=== PATIENT | female | born 1950 | race Caucasian/White ===

== ENCOUNTER 2017-05-04 12:13 | Emergency (ER) | payer MEDICARE ==
[2017-05-04] MEDS ORDERED: ISOVUE-370 76%-LOCM 1 ML ONE (14:12)
[2017-05-04 14:14] LABS: #Basophils 0.1 thou/uL (0.0-0.2); #Eosinphils 0.1 thou/uL (0.0-0.7); #Lymphocytes 2.1 thou/uL (1.20-3.40); #Monocytes 0.6 thou/uL (0.11-0.59); #Neutrophils 4.4 thou/uL (1.40-6.50); %Basophils 0.7 % (0.0-1.0); %Eosinophils 1.3 % (0.0-10.0); %Monocytes 8.8 % (0.0-10.0); Hematocrit 43.3 % (36.0-47.0); Mean Platelet Volume 7.4 fL (7.4-10.4); Red Blood Cell (RBC) Count 4.83 mill/uL (4.20-5.40); White Blood Cell (WBC) Count 7.3 thou/uL (4.8-10.8)
[2017-05-04 14:20] LABS: PTT 28.5 SEC (22.9-36.1); Prothrombin Time 12.8 SEC (12.0-14.7)
[2017-05-04 14:38] LABS: ALT (SGPT) 14 U/L (8-55); AST (SGOT) 15 U/L (5-34); Alkaline Phosphatase 116 U/L (40-150); Anion Gap 14 mmol/L (10-20); BUN (Urea Nitrogen) 12 mg/dL (9.8-20.1); Bilirubin, Total 0.5 mg/dL (0.2-1.2); Calc. Creatinine Clearance 0 mL/min (70-130); Calcium 9.4 mg/dL (7.8-10.44); Carbon Dioxide 25 mmol/L (23-31); Chloride 103 mmol/L (98-107); Estimated GFR-MDRD 66; Globulin 3.5 g/dL (2.4-3.5); Protein, Total 7.6 g/dL (6.0-8.3)
--- NOTE | 2017-05-04 16:21 | CT ---
CTA OF THE NECK WITH CONTRAST: COMPARISON: None. HISTORY: Severe neck pain and blurry vision for 2 days. The patient saw her chiropractor for an adjustment 3 weeks ago and reports pain with rotation of the neck. TECHNIQUE: Multiple contiguous axial images were obtained in a CTA of the neck with contrast. Sagittal and cor onal reformats were performed. FINDINGS: Moderate degenerative changes are seen in the cervical spine. There is no evidence of fracture or d islocation. No prevertebral soft tissue swelling is seen. No mucosal abnormality is seen in the nasopharynx, oropharynx, hypopharynx, or subglottic lesion. T he salivary glands and thyroid are unremarkable. The lung apices are unremarkable. There is a mild amount of atherosclerotic plaque in the proximal aspect of both internal carotid art eries. Estimated stenosis of approximately 10-15% per NASCET criteria is seen bilaterally. No sign ificant atherosclerotic disease is seen in the distal internal carotid arteries. Both vertebral arteries form a normal-appearing basilar artery. The left vertebral artery is domina nt. IMPRESSION: Mild atherosclerotic disease in the bilateral internal carotid arteries without significant stenosis . POS: [facility]
== END 2017-05-04 16:24 | disposition home or self-care (01) ==
LOC: ERS 12:13
DX: M54.12 Radiculopathy, cervical region (principal); I65.29 Occlusion and stenosis of unspecified carotid artery; E11.9 Type 2 diabetes mellitus without complications; I10 Essential (primary) hypertension; Z79.899 Other long term (current) drug therapy
CPT/HCPCS: 36415; 70498; 80053; 85025; 85610; 85730

== ENCOUNTER 2017-10-10 13:00 | Emergency (ER) | payer MEDICARE ==
--- NOTE | 2017-10-10 15:43 | ULT ---
BILATERAL LOWER EXTREMITY VENOUS DUPLEX EXAM: Date: 10/10/17 Ultrasound Doppler study performed of the deep veins of both lower extremities. Color Doppler, spectr al analysis, and compression studies performed. HISTORY: Bilateral lower extremity pain and edema. FINDINGS: Deep veins of both lower extremities show normal compression and blood flow. No evidence of deep veno us thrombosis identified. IMPRESSION: Negative bilateral lower extremity venous duplex study. POS: [facility]
[2017-10-10] MEDS ORDERED: traMADol HCl 50 MG TAB ONE (16:11)
== END 2017-10-10 16:15 | disposition home or self-care (01) ==
LOC: ERS 13:00
DX: M79.662 Pain in left lower leg (principal); E11.9 Type 2 diabetes mellitus without complications; I10 Essential (primary) hypertension; J45.909 Unspecified asthma, uncomplicated; K21.9 Gastro-esophageal reflux disease without esophagitis; Z79.899 Other long term (current) drug therapy
CPT/HCPCS: 93970

== ENCOUNTER 2018-03-02 09:52 | Emergency (ER) | payer MEDICARE ==
[2018-03-02 10:26] LABS: Bilirubin Negative (Negative); Blood, Urine Small (Negative); Clarity CLEAR (Clear); Glucose, Urine (Dipstick) Negative (Negative); Leukocyte Negative (Negative); Nitrite Negative (Negative); Protein, Urine (Dipstick) Negative (Neg-Trace); Specific Gravity, Urine 1.005 (1.002-1.036)
[2018-03-02 10:29] LABS: Bacteria/HPF 1+ HPF (None Seen); Hyaline Casts/LPF 0-3 HYALINE CAST LPF (0-3 Hyaline); Pathc Cast-AUWi Flag 0.14 (0-2.49); RBC/HPF 0-3 HPF (0-3); Squamous Epithelial 0-3 HPF (0-3); WBC/HPF 0-3 HPF (0-3)
[2018-03-02 10:30] LABS: #Lymphocytes 1.9 thou/uL (1.20-3.40); #Monocytes 0.5 thou/uL (0.11-0.59); #Neutrophils 4.2 thou/uL (1.40-6.50); %Basophils 0.3 % (0.0-1.0); %Eosinophils 0.5 % (0.0-10.0); %Lymphocytes 28.2 % (21.0-51.0); %Monocytes 7.9 % (0.0-10.0); %Neutrophils 63.1 % (42.0-75.0); Hemoglobin 13.8 g/dL (12.0-16.0); Mean Corpuscular HGB CONC 32.6 g/dL (32.0-36.0); Mean Corpuscular Hemoglobin 29.3 pg (27.0-31.0); Mean Corpuscular Volume 89.9 fL (78.0-98.0); Mean Platelet Volume 7.4 fL (7.4-10.4); Platelet Count 170 thou/uL (130-400); RBC Distribution Width 12.4 % (11.5-14.5); White Blood Cell (WBC) Count 6.7 thou/uL (4.8-10.8)
[2018-03-02 10:34] LABS: INR-International Normal Ratio 1.1; Prothrombin Time 14.4 SEC (12.0-14.7)
[2018-03-02 10:51] LABS: ALT (SGPT) 16 U/L (8-55); AST (SGOT) 18 U/L (5-34); Albumin 4.2 g/dL (3.4-4.8); Alkaline Phosphatase 113 U/L (40-150); Anion Gap 12 mmol/L (10-20); BUN (Urea Nitrogen) 12 mg/dL (9.8-20.1); Bilirubin, Total 0.6 mg/dL (0.2-1.2); Calc. Creatinine Clearance 0 mL/min (70-130); Calcium 9.3 mg/dL (7.8-10.44); Carbon Dioxide 27 mmol/L (23-31); Chloride 103 mmol/L (98-107); Estimated GFR-MDRD 70; Globulin 3.3 g/dL (2.4-3.5); Glucose 152 mg/dL (80-115); Magnesium 2.2 mg/dL (1.6-2.6); Potassium 4.2 mmol/L (3.5-5.1); Protein, Total 7.5 g/dL (6.0-8.3); Sodium 138 mmol/L (136-145)
[2018-03-02 11:02] LABS: Troponin I Less than 0.010 ng/mL (< 0.028)
--- NOTE | 2018-03-02 11:05 | RAD ---
CHEST TWO VIEWS: History: Chest pain, palpitations. Comparison: 2004 FINDINGS: Heart size upper limits of normal. No focal airspace consolidation, pneumothorax, or effusion. Mild t ortuosity of the aorta. Right upper quadrant surgical clips. IMPRESSION: Mild cardiomegaly and tortuous aorta. POS: [facility]
== END 2018-03-02 12:28 | disposition home or self-care (01) ==
LOC: ERS 09:52
DX: I48.91 Unspecified atrial fibrillation (principal); E11.9 Type 2 diabetes mellitus without complications; I10 Essential (primary) hypertension; J45.909 Unspecified asthma, uncomplicated; K21.9 Gastro-esophageal reflux disease without esophagitis
CPT/HCPCS: 71046; 80053; 81003; 81015; 83735; 83880; 84484; 85025; 85610; 85730; 93005

== ENCOUNTER 2018-04-28 09:25 | Emergency (ER) | payer MEDICARE ==
--- NOTE | 2018-04-28 10:11 | RAD ---
RIGHT KNEE FOUR VIEWS: HISTORY: Knee pain. FINDINGS: Moderate degenerative changes are present. Narrowing of the medial joint space. Spurring from tibia l condyles, tibial spines, femoral condyles, and patella. Possible small joint effusion. No fractur e or acute lesion. IMPRESSION: Moderate degenerative changes, as described. POS: [facility]
[2018-04-28] MEDS ORDERED: predniSONE 20 MG TAB ONE (10:41)
== END 2018-04-28 10:51 | disposition home or self-care (01) ==
LOC: ERS 09:25
DX: M25.461 Effusion, right knee (principal); I48.91 Unspecified atrial fibrillation; E11.9 Type 2 diabetes mellitus without complications; I10 Essential (primary) hypertension; J45.909 Unspecified asthma, uncomplicated; K21.9 Gastro-esophageal reflux disease without esophagitis; Z79.899 Other long term (current) drug therapy
CPT/HCPCS: J7506

== ENCOUNTER 2018-09-05 09:45 | Outpatient (CLI) | payer MEDICARE | END 2018-09-05 09:46 | disposition home or self-care (01) | LOC: BICMAMMO 09:45 | PROVIDERS: ATTEND Obstetrics & Gynecology | DX: Z12.31 Encounter for screening mammogram for malignant neoplasm of breast (principal); Z80.3 Family history of malignant neoplasm of breast | CPT/HCPCS: 77063; 77067 ==

== ENCOUNTER 2018-10-04 08:10 | Emergency (ER) | payer MEDICARE ==
[2018-10-04 09:33] LABS: #Eosinphils 0.1 thou/uL (0.0-0.7); #Lymphocytes 1.5 thou/uL (1.20-3.40); #Monocytes 0.7 thou/uL (0.11-0.59); #Neutrophils 6.9 thou/uL (1.40-6.50); %Basophils 0.5 % (0.0-1.0); %Eosinophils 0.8 % (0.0-10.0); %Monocytes 7.6 % (0.0-10.0); %Neutrophils 75.2 % (42.0-75.0); Mean Corpuscular HGB CONC 31.6 g/dL (32.0-36.0); Mean Corpuscular Hemoglobin 27.5 pg (27.0-31.0); Mean Platelet Volume 8.7 fL (7.4-10.4); Platelet Count 192 thou/uL (130-400); RBC Distribution Width 12.2 % (11.5-14.5); Red Blood Cell (RBC) Count 4.37 mill/uL (4.20-5.40); White Blood Cell (WBC) Count 9.1 thou/uL (4.8-10.8)
[2018-10-04 09:56] LABS: ALT (SGPT) 16 U/L (8-55); AST (SGOT) 19 U/L (5-34); Albumin 4.1 g/dL (3.4-4.8); Alkaline Phosphatase 137 U/L (40-150); Anion Gap 12 mmol/L (10-20); BUN (Urea Nitrogen) 12 mg/dL (9.8-20.1); Bilirubin, Total 0.4 mg/dL (0.2-1.2); CK (CPK) 43 U/L (29-168); Calc. Creatinine Clearance 0 mL/min (70-130); Calcium 9.4 mg/dL (7.8-10.44); Carbon Dioxide 25 mmol/L (23-31); Chloride 104 mmol/L (98-107); Estimated GFR-MDRD 71; Globulin 3.3 g/dL (2.4-3.5); Glucose 149 mg/dL (80-115); Potassium 4.2 mmol/L (3.5-5.1); Protein, Total 7.4 g/dL (6.0-8.3); Sodium 137 mmol/L (136-145)
--- NOTE | 2018-10-04 10:09 | RAD ---
CHEST 1 VIEW: HISTORY: dyspnea. COMPARISON: Radiograph 01/30/2015. FINDINGS: Lungs are clear. No pneumothorax or effusion. Cardiac silhouette and mediastinal contours are simil ar. No acute osseous abnormality. Mild ectasia of the descending thoracic aorta. IMPRESSION: No acute intrathoracic abnormality. POS: [facility]
== END 2018-10-04 11:56 | disposition home or self-care (01) ==
LOC: ERS 08:10
DX: R06.02 Shortness of breath (principal); I48.91 Unspecified atrial fibrillation; E11.9 Type 2 diabetes mellitus without complications; I10 Essential (primary) hypertension; J45.909 Unspecified asthma, uncomplicated; K21.9 Gastro-esophageal reflux disease without esophagitis; Z79.899 Other long term (current) drug therapy
CPT/HCPCS: 36415; 71045; 80053; 82550; 83605; 83880; 84484; 85025; 85379; 87804; 93005; 94640; 94760; J7620

== ENCOUNTER 2019-05-07 02:58 | Emergency (ER) | payer MEDICARE ==
[2019-05-07] MEDS ORDERED: Ondansetron ODT 4 MG TAB ONE (03:26)
[2019-05-07] MEDS ORDERED: Acetaminophen 500 MG TAB ONE (03:26)
== END 2019-05-07 03:42 | disposition home or self-care (01) ==
LOC: ERS 02:58
DX: L03.811 Cellulitis of head [any part, except face] (principal); E11.9 Type 2 diabetes mellitus without complications; I10 Essential (primary) hypertension; J45.909 Unspecified asthma, uncomplicated; K21.9 Gastro-esophageal reflux disease without esophagitis; I48.91 Unspecified atrial fibrillation
CPT/HCPCS: 99283; Q0162

== ENCOUNTER 2019-07-15 08:49 | Emergency (ER) | payer MEDICARE, SELFPAY ==
--- NOTE | 2019-07-15 09:30 | RAD ---
XR Chest 1 View Portable HISTORY: Elevated heart rate COMPARISON: 10/04/2018 study. FINDINGS: Heart size appears enlarged. There are atherosclerotic changes of the aorta. The lungs are clear of infiltrates. No signs of failure. IMPRESSION: Mild cardiomegaly.
[2019-07-15 09:36] LABS: #Eosinphils 0.3 thou/uL (0.0-0.7); #Lymphocytes 2.1 thou/uL (1.20-3.40); #Monocytes 0.8 thou/uL (0.11-0.59); #Neutrophils 4.2 thou/uL (1.40-6.50); %Basophils 0.3 % (0.0-1.0); %Eosinophils 4.3 % (0.0-10.0); %Lymphocytes 28.4 % (21.0-51.0); %Monocytes 10.2 % (0.0-10.0); %Neutrophils 56.8 % (42.0-75.0); Hemoglobin 12.1 g/dL (12.0-16.0); Mean Corpuscular HGB CONC 31.8 g/dL (32.0-36.0); Mean Corpuscular Hemoglobin 25.6 pg (27.0-31.0); Mean Corpuscular Volume 80.4 fL (78.0-98.0); Mean Platelet Volume 8.2 fL (7.4-10.4); Platelet Count 168 thou/uL (130-400); RBC Distribution Width 15.1 % (11.5-14.5); Red Blood Cell (RBC) Count 4.71 mill/uL (4.20-5.40); White Blood Cell (WBC) Count 7.4 thou/uL (4.8-10.8)
[2019-07-15 09:44] LABS: ALT (SGPT) 14 U/L (8-55); AST (SGOT) 14 U/L (5-34); Alkaline Phosphatase 125 U/L (40-110); Anion Gap 13 mmol/L (10-20); BUN (Urea Nitrogen) 10 mg/dL (9.8-20.1); Bilirubin, Total 0.6 mg/dL (0.2-1.2); Calc. Creatinine Clearance 0 mL/min (70-130); Calcium 9.3 mg/dL (7.8-10.44); Carbon Dioxide 25 mmol/L (23-31); Chloride 102 mmol/L (98-107); Estimated GFR-MDRD 72; Globulin 3.1 g/dL (2.4-3.5); Glucose 159 mg/dL (80-115); Lipase 21 U/L (8-78); Magnesium 1.8 mg/dL (1.6-2.6); Protein, Total 7.1 g/dL (6.0-8.3); Sodium 136 mmol/L (136-145)
[2019-07-15] MEDS ORDERED: Metoprolol Tartrate 5 MG/5 ML VIAL ONE (10:11)
[2019-07-15] MEDS ORDERED: Magnesium 2 GM/50 ML BAG (IN WATER) ONE (10:12)
[2019-07-15 10:40] LABS: Bacteria/HPF None Seen HPF (None Seen); Bilirubin Negative (Negative); Blood, Urine 1+ (Negative); Clarity Clear (Clear); Glucose, Urine (Dipstick) Normal (Negative); Leukocyte 75 Leu/uL (Negative); Nitrite Negative (Negative); Protein, Urine (Dipstick) Negative (Neg-Trace); Squamous Epithelial 0-3 HPF (0-3); Urobilinogen Normal mg/dL (Less than 2)
== END 2019-07-15 11:09 | disposition home or self-care (01) ==
LOC: ERS 08:49
DX: I48.91 Unspecified atrial fibrillation (principal); N39.0 Urinary tract infection, site not specified; R05 Cough; I49.9 Cardiac arrhythmia, unspecified; E11.9 Type 2 diabetes mellitus without complications; I10 Essential (primary) hypertension; K21.9 Gastro-esophageal reflux disease without esophagitis
CPT/HCPCS: 36415; 71045; 80053; 81003; 81015; 83690; 83735; 83880; 84443; 84484; 85025; 87077; 87086; 87186; 93005; 96374; 96375; J3475

== ENCOUNTER 2019-08-22 06:33 | Observation (INO) | payer MEDICARE ==
[2019-08-21 09:43] VITALS: BMI 36.2
[2019-08-22] MEDS ORDERED: Isoproterenol 0.2 MG/1 ML AMP ONE ×2 (06:51→10:37)
[2019-08-22] MEDS ORDERED: Heparin 25,000 units/D5W 500 ML ONE (06:51)
[2019-08-22] MEDS ORDERED: Heparin 10,000 UNITS/1 ML VIAL ONE ×2 (06:51→10:36)
[2019-08-22] MEDS ORDERED: Heparin (Artline) 1,500 ML ONE (06:51)
[2019-08-22 07:53] LABS: #Eosinphils 0.1 thou/uL (0.0-0.7); #Lymphocytes 1.7 thou/uL (1.20-3.40); #Monocytes 0.5 thou/uL (0.11-0.59); #Neutrophils 4.6 thou/uL (1.40-6.50); %Basophils 0.4 % (0.0-1.0); %Eosinophils 1.2 % (0.0-10.0); %Lymphocytes 24.8 % (21.0-51.0); %Monocytes 7.5 % (0.0-10.0); Hemoglobin 11.5 g/dL (12.0-16.0); Mean Corpuscular HGB CONC 31.2 g/dL (32.0-36.0); Mean Corpuscular Hemoglobin 25.1 pg (27.0-31.0); Mean Corpuscular Volume 80.4 fL (78.0-98.0); Mean Platelet Volume 8.1 fL (7.4-10.4); Platelet Count 214 thou/uL (130-400); RBC Distribution Width 14.3 % (11.5-14.5); Red Blood Cell (RBC) Count 4.61 mill/uL (4.20-5.40)
[2019-08-22 07:59] LABS: INR-International Normal Ratio 1.1; PTT 34.1 SEC (22.9-36.1); Prothrombin Time 13.9 SEC (12.0-14.7)
[2019-08-22 08:11] LABS: Anion Gap 11 mmol/L (10-20); BUN (Urea Nitrogen) 14 mg/dL (9.8-20.1); Calc. Creatinine Clearance 100 mL/min (70-130); Calcium 8.7 mg/dL (7.8-10.44); Carbon Dioxide 24 mmol/L (23-31); Chloride 106 mmol/L (98-107); Estimated GFR-MDRD 73; Glucose 157 mg/dL (83-110); Potassium 4.1 mmol/L (3.5-5.1); Sodium 137 mmol/L (136-145)
[2019-08-22] MEDS ORDERED: Fentanyl 100 MCG/2 ML VIAL ONE ×2 (08:55→11:11)
[2019-08-22] MEDS ORDERED: SUGAMMADEX SODIUM 500 MG/5 ML VIAL ONE (08:57)
[2019-08-22] MEDS ORDERED: Rocuronium Bromide 50 MG/5 ML VIAL ONE (08:57)
[2019-08-22] MEDS ORDERED: Ondansetron PF 4 MG/2 ML Vial ONE (10:23)
[2019-08-22] MEDS ORDERED: PROPOFOL 200 MG/20 ML VIAL ONE (10:23)
[2019-08-22] MEDS ORDERED: Rocuronium Bromide 10 MG/ML (10ML VIAL) ONE (10:23)
[2019-08-22] MEDS ORDERED: Dexamethasone 20 MG/5 ML VIAL ONE (10:23)
[2019-08-22] MEDS ORDERED: ePHEDrine/0.9% NaCl/PF SYRINGE 50 mg/10 ml ONE (10:23)
[2019-08-22] MEDS ORDERED: Glycopyrrolate 0.2 MG/ML 5 ML SYRINGE ONE (10:23)
[2019-08-22] MEDS ORDERED: Midazolam HCl 2 mg/2 ml Vial ONE (11:11)
[2019-08-22] MEDS ORDERED: Protamine Sulfate 50 MG/5 ML VIAL ONE (11:48)
--- NOTE | 2019-08-22 14:07 | OP ---
DATE OF PROCEDURE: 08/22/2019 PROCEDURE PERFORMED: Electrophysiology study and radiofrequency ablation. ADDITIONAL REFERRING PHYSICIAN: Delaney Flores MD. REASON FOR PROCEDURE: Ms. Zapien is a 69-year-old female with history of atrial fibrillation, persisting despite of Multaq therapy and flecainide therapy prior to that. She is here for a pulmonary venous isolation procedure. She has been adequately anticoagulated with Eliquis. DESCRIPTION OF PROCEDURE: The patient received general anesthesia by anesthesia specialist. Left and right femoral veins were prepped and draped, anesthetized using subcutaneous lidocaine. Under ultrasound guidance, both femoral veins were cannulated x2. On the left side, an 11-Mongolian sheath was used to advance the intracardiac echocardiogram probe, which was in turn used for one time during the transseptal procedure in the pericardial space and catheter manipulation throughout the case. Also from the left femoral vein, a Preface sheath was advanced, through which a duo-Deca catheter was positioned into the right atrium and CS position. From the right femoral venous area, initially two 8-Mongolian short sheaths were introduced, through which a ThermoCool SFST catheter was advanced to the right atrium and 3D map of the right atrium, His bundle, and CS positions were obtained. Following that, the short sheath was exchanged to SL1 transseptal sheaths. IV heparin was administered and adjusted throughout the case to keep ACT over 350, which was periodically checked. With the help of a Etaoshi powered needle under fluoroscopic and intracardiac echo guidance, the transseptal puncture was performed x2 and the SL1 sheath was advanced into left atrium. The ThermoCool SFST catheter was advanced to the left atrium as well as the 20-pole Lasso catheter as well. 3D map of the left atrium was obtained. Following that, pulmonary venous isolation procedure was performed, isolating all 4 pulmonary veins, roof line, and inferior line was also performed to the isolated posterior wall. Throughout the case, the esophageal temperature was used to avoid excessive heating of the esophagus. Despite of the ablation as above, the patient remained atrial fibrillation. Further lesions were delivered at the interatrial septum and base of the left atrium at the sites of fractionated potentials. At this point, cardioversion was performed with a 300-joule, converted the patient back to sinus rhythm. Isuprel was administered and all 4 pulmonary vein connections were checked and any reconnection was re- ablated. The posterior wall in all 4 veins was remained isolated at the end of the case. Burst atrial pacing was performed. Basic EP study was also performed including ventricular pacing from the LV. The antegrade Wenckebach cycle length was 350 milliseconds, retrograde Wenckebach cycle length was 330 milliseconds, HV was 41 milliseconds, atrial ERP was 400/180 milliseconds. Burst atrial pacing did not reinduce any atrial arrhythmias. No significant PACs were seen. Throughout the case in the left atrium, [id number]-ky-[id number] scarring was seen. A total of 16 minutes of RF delivered at 40 gonzalez, total of 29 lesions delivered. Normal sinus and AV lucio function pre and post procedure. No inducible arrhythmias in the end of the case. Following that, the catheter was withdrawn from the left side. Heparin was stopped and then reversed with protamine. A long sheath was exchanged for short sheath and the Vascade closure was performed at each vascular access site. Manual pressure was also applied to obtain hemostasis. Prior to removal of the ICE catheter, the pericardial space was rechecked. The baseline small pericardial effusion was mildly increased, but no hemodynamic significance and the patient remained hemodynamically stable throughout the case. The cardiac silhouette did not change significantly either on the fluoroscopy. CONCLUSION: 1. Atrial fibrillation at baseline. 2. Successful 4-vein pulmonary venous isolation performed. 3. Posterior wall was isolated with roof and inferior lines. 4. Additional lesions placed in the base of left atrium over the coronary sinus roof and interatrial septum. 5. Plan continue OAC, Stop Multaq, monitor for recurrence. Job ID: [id number] MTDD
[2019-08-22] MEDS ORDERED: Acetaminophen/Codeine 30-300mg Tablet PO PRN ×4 (14:41→14:45)
[2019-08-22] MEDS ORDERED: Nitroglycerin 0.4 MG TAB 1 EACH SL PRN (14:44)
[2019-08-22] MEDS ORDERED: Ketorolac Tromethamine 30 MG/ML VIAL IVP PRN (15:01)
[2019-08-22] MEDS: Sucralfate 1 GM TAB PO SCH ×2 (16:41→20:57)
[2019-08-22] MEDS: Apixaban 5 MG TAB PO SCH (20:57)
[2019-08-22] MEDS: Carvedilol 6.25 MG TAB PO SCH (20:58)
[2019-08-22] MEDS ORDERED: Rosuvastatin 10 MG TAB PO SCH (21:00)
[2019-08-23 04:50] VITALS: TEMP 97.9
[2019-08-23] MEDS: Carvedilol 6.25 MG TAB PO SCH (08:28)
[2019-08-23] MEDS: Apixaban 5 MG TAB PO SCH (08:28)
[2019-08-23] MEDS: Sucralfate 1 GM TAB PO SCH (08:28)
[2019-08-23 08:37] VITALS: BP 134/63
--- NOTE | 2019-08-24 01:28 | DIS ---
DATE OF ADMISSION: 08/22/2019 DATE OF DISCHARGE: 08/23/2019 DIAGNOSIS: Atrial fibrillation. PROCEDURES PERFORMED: Include electrophysiology study and radiofrequency ablation with mapping. Successful four vein pulmonary venous isolation performed including posterior wall isolation with roof and inferior lines. Additional lesions placed at the base of the left atrium over the coronary sinus roof and intra-atrial space. Total of 16 minutes RF energy delivered. Normal sinus and AV node function pre and post procedure. Complications, none. SUBJECTIVE: Ms. Zapien is a 69-year-old woman with a history of atrial fibrillation, persisting despite Multaq therapy and flecainide prior to her procedure. She was taken for pulmonary venous isolation procedure on the , which was performed as detailed above successfully restoring sinus rhythm. She has maintained sinus rhythm overnight, is no longer on antiarrhythmic therapy. Heart rates have been stable with minimal atrial ectopy with continued low-dose beta-marnie support on Coreg. The Eliquis was restarted post ablation. Vital signs are stable. I's and O's did not suggest fluid overload and the patient is eager to discharge home. The patient denies heart racing, palpitations, chest pain, pressure, syncope, near syncope, stroke, stroke-like symptoms, bleeding at the groin sites, dyspnea on exertion. She is tolerating p.o. intake, ambulating on the phelps without difficulty and is eager to go home. OBJECTIVE: VITAL SIGNS: Temperature 97.7, pulse 90, blood pressure 134/63, oxygen 99% on room air, respirations are 16. GENERAL: The patient is alert and oriented. Speech is clear. Affect is appropriate. HEART: Heart rate is regularly regular with a crisp S1 and S2. No murmur, rub, or gallop. LUNGS: Clear to auscultation bilaterally without wheezes, crackles, or rhonchi. ABDOMEN: Soft and nontender. Hepatojugular reflux is negative. Positive bowel sounds throughout. EXTREMITIES: Warm and dry to touch without clubbing, cyanosis, or edema. NEUROLOGIC: Grossly intact and nonfocal. No lateralized findings. Gait is stable. Bilateral groin sites are without hematoma. There is no blood on the dressings and distal pulses are strong. CONDITION AT DISCHARGE: Stable. DISCHARGE MEDICATIONS: Include: 1. Carvedilol 6.25 mg b.i.d. 2. Eliquis 5 mg b.i.d. 3. Crestor 10 mg daily. 4. New prescription submitted for Carafate 1 g p.o. before meals and at bedtime for 14 days. 5. Protonix 40 mg daily x30 days. 6. Potassium chloride 20 mEq p.o. p.r.n. if taking Lasix. 7. Lasix 40 mg p.o. p.r.n. shortness of breath, weight gain or fluid retention. DISCHARGE INSTRUCTIONS: No lifting more than 10 pounds or soaking baths for the next 7 days. Light activity for 7 days and resume activity gradually and as tolerated. Take Eliquis without interruption. Contact [facility] with any postablation questions or concerns. Followup in 6 weeks will be arranged postoperatively. The patient is cleared for discharge. Job ID: [id number]
--- NOTE | 2019-08-28 09:43 | EKG ---
Test Reason : PREOP Blood Pressure : / mmHG Vent. Rate : 102 BPM Atrial Rate : 326 BPM P-R Int : 000 ms QRS Dur : 146 ms QT Int : 364 ms P-R-T Axes : 000 -29 -12 degrees QTc Int : 474 ms Atrial fibrillation with rapid ventricular response Right bundle branch block Inferior infarct , age undetermined Abnormal ECG When compared with ECG of 15-JUL-2019 08:58, Inferior infarct is now Present Confirmed by PHILLIP FERRARO (2) on 08/28/2019 9:43:10 AM Referred By: SAMMI Confirmed By:PHILLIP FERRARO
--- NOTE | 2019-08-28 09:46 | EKG ---
Test Reason : POST ABLATION Blood Pressure : / mmHG Vent. Rate : 094 BPM Atrial Rate : 094 BPM P-R Int : 196 ms QRS Dur : 160 ms QT Int : 420 ms P-R-T Axes : 067 -26 -20 degrees QTc Int : 525 ms Normal sinus rhythm Right bundle branch block Inferior infarct (cited on or before 22-AUG-2019) T wave abnormality, consider lateral ischemia Abnormal ECG When compared with ECG of 22-AUG-2019 08:30, (Unconfirmed) Sinus rhythm has replaced Atrial fibrillation QT has lengthened Confirmed by PHILLIP FERRARO (2) on 08/28/2019 9:46:22 AM Referred By: SAMMI Confirmed By:PHILLIP FERRARO
--- NOTE | 2019-08-28 10:21 | EKG ---
Test Reason : Blood Pressure : / mmHG Vent. Rate : 089 BPM Atrial Rate : 089 BPM P-R Int : 216 ms QRS Dur : 166 ms QT Int : 416 ms P-R-T Axes : 073 -26 -07 degrees QTc Int : 506 ms Sinus rhythm with 1st degree A-V block Right bundle branch block Inferior infarct (cited on or before 22-AUG-2019) Abnormal ECG When compared with ECG of 22-AUG-2019 12:53, (Unconfirmed) No significant change was found Confirmed by PHILLIP FERRARO (2) on 08/28/2019 10:21:23 AM Referred By: SAMMI Confirmed By:PHILLIP FERRARO
== END 2019-08-23 10:43 | disposition home or self-care (01) ==
LOC: SDC 06:33 → 2SW 14:33
PROVIDERS: ADMIT Internal Medicine Cardiovascular Disease; ATTEND Internal Medicine Cardiovascular Disease
DX: I48.0 Paroxysmal atrial fibrillation (principal); I10 Essential (primary) hypertension; E11.9 Type 2 diabetes mellitus without complications; I25.10 Atherosclerotic heart disease of native coronary artery without angina pectoris; Z79.01 Long term (current) use of anticoagulants; Z79.899 Other long term (current) drug therapy; Z88.0 Allergy status to penicillin; Z88.5 Allergy status to narcotic agent
CPT/HCPCS: 80048; 85025; 85347 ×2; 85610; 85730; 93005 ×3; 93613; 93622; 93623; 93656; 93662; C1731; C1732 ×3; C1759; C1769; G0378 ×2; 36415; 93010; J1100; J1644; J2250; J2405; J2704; J2720; J3010

== ENCOUNTER 2020-01-15 08:55 | Outpatient (CLI) | payer MEDICARE ==
[2020-01-15] MEDS ORDERED: Iopamidol 370 76% 100 ML VIAL ONE (09:16)
--- NOTE | 2020-01-15 11:57 | CT ---
CT ABDOMEN WITH AND WITHOUT CONTRAST CT PELVIS WITH CONTRAST: DATE: 01/15/2020 HISTORY: 69-year-old female with microscopic hematuria and recurrent urinary tract infections COMPARISON: 02/11/2014 TECHNIQUE: This was ordered as a CT urogram, followed by CT cystogram. Noncontrast CT of abdomen and pelvis performed. IV injection of iodinated contrast media: 100 mL Isovue-370 administered. Oral contrast media:Not administered. After 90 seconds, nephrographic/venous phase scan of abdomen performed. At this point, patient experienced dyspnea, and was taken off the table. She was evaluated by Dr. Lanza and radiology nurse, who determined that this was not an allergic re action to the injected contrast media. However, the patient refused to continue further with the study. Therefore, the 4 minute delayed scan of abdomen and pelvis, and the CT cystogram, were not performed FINDINGS: Previously demonstrated 0.8 cm very small exophytic renal cyst arising from posterolateral cortex of right renal upper-mid pole, has grown to current diameter of 1.8 cm. It is still a simple cyst. Otherwise, the right nephrogram is normal. Within the posterior aspect of the left renal midpole parenchyma, there is a tiny 0.5 x 0.5 cm focal hypodense lesion, too small to characterize, not visualized on the previous CT. The rest of the left nephrogram is normal. There are no renal, ureteral, or bladder calculi. No hydronephrosis. There is a Pineda catheter within a decompressed urinary bladder on the precontrast scan. There are no postcontrast images of the urinary bladder. Again noted are the numerous diverticula throughout the sigmoid colon, but this time, there is no alfred dence of diverticulitis. No significant pathology identified involving abdominal aorta, adrenals, pancreas, liver, or spleen. Again noted is the prominent diverticulum protruding medially from the second stage of the duodenum. No ascites or pneumoperitoneum. Clips in gallbladder fossa. IMPRESSION: 1) incomplete study. See technique comments. 2) new tiny 0.5 cm focal lesion in the left kidney, too small to characterize. 3) interval slow growth of a right renal exophytic small simple cyst.
== END 2020-01-15 08:56 | disposition home or self-care (01) ==
LOC: CT 08:55
PROVIDERS: ATTEND Urology
DX: R31.29 Other microscopic hematuria (principal); N39.0 Urinary tract infection, site not specified; N28.9 Disorder of kidney and ureter, unspecified; N28.1 Cyst of kidney, acquired
CPT/HCPCS: 36415; 74178; 80048; 81001; 83036; 87086

== ENCOUNTER 2020-02-18 12:53 | Emergency (ER) | payer MEDICARE ==
[2020-02-18 14:26] LABS: #Eosinphils 0.1 thou/uL (0.0-0.7); #Lymphocytes 1.5 thou/uL (1.20-3.40); #Monocytes 0.6 thou/uL (0.11-0.59); %Basophils 0.4 % (0.0-1.0); %Eosinophils 1.3 % (0.0-10.0); %Lymphocytes 20.8 % (21.0-51.0); %Monocytes 7.7 % (0.0-10.0); %Neutrophils 69.7 % (42.0-75.0); Hemoglobin 10.4 g/dL (12.0-16.0); Mean Corpuscular Volume 77.3 fL (78.0-98.0); Mean Platelet Volume 8.2 fL (7.4-10.4); Platelet Count 198 thou/uL (130-400); RBC Distribution Width 14.5 % (11.5-14.5); Red Blood Cell (RBC) Count 4.35 mill/uL (4.20-5.40); White Blood Cell (WBC) Count 7.1 thou/uL (4.8-10.8)
[2020-02-18 14:41] LABS: Chloride 101 mmol/L (98-107); Sodium 137 mmol/L (136-145)
[2020-02-18 14:42] LABS: Glucose 162 mg/dL (83-110)
[2020-02-18 14:43] LABS: Globulin 2.9 g/dL (2.4-3.5); Protein, Total 6.9 g/dL (6.0-8.3)
[2020-02-18 14:44] LABS: Anion Gap 14 mmol/L (10-20); Bilirubin, Total 0.3 mg/dL (0.2-1.2); Carbon Dioxide 26 mmol/L (23-31)
[2020-02-18 14:45] LABS: Alkaline Phosphatase 93 U/L (40-110)
[2020-02-18 14:46] LABS: BUN (Urea Nitrogen) 12 mg/dL (9.8-20.1); Calc. Creatinine Clearance 0 mL/min (70-130); Estimated GFR-MDRD 69
[2020-02-18 14:48] LABS: ALT (SGPT) 16 U/L (8-55); AST (SGOT) 18 U/L (5-34)
== END 2020-02-18 14:55 | disposition home or self-care (01) ==
LOC: ERS 12:53
DX: D64.9 Anemia, unspecified (principal); I48.91 Unspecified atrial fibrillation; E11.9 Type 2 diabetes mellitus without complications; I10 Essential (primary) hypertension; J45.909 Unspecified asthma, uncomplicated; K21.9 Gastro-esophageal reflux disease without esophagitis
CPT/HCPCS: 36415; 80053; 82274; 85025; 86850; 86900; 86901; 99284

== ENCOUNTER 2020-02-29 10:20 | Outpatient (CLI) | payer MEDICARE ==
--- NOTE | 2020-02-29 10:44 | BD ---
EXAM: DEXA bone density examination HISTORY: 69-year-old postmenopausal female for screening COMPARISON: None FINDINGS: L1--bone mineral density 1.155 g/sq cm; T score 1.5 L2--bone mineral density 1.167 g/sq cm; T score 1.3 L3--bone mineral density 1.248 g/sq cm; T score 1.5 L4--bone mineral density 1.300 g/sq cm; T score 2.2 Total L1-L4--bone mineral density 1.223 g/sq cm; T score 1.6 Left femoral neck--bone mineral density0.820; T score 0.3 Total proximal left femur--bone mineral density 1.088; T score 1.2 IMPRESSION: Normal bone density.
== END 2020-02-29 10:21 | disposition home or self-care (01) ==
LOC: BICMAMMO 10:20
PROVIDERS: ATTEND Nurse Practitioner Family
DX: Z13.820 Encounter for screening for osteoporosis (principal)
CPT/HCPCS: 77080

== ENCOUNTER 2020-12-23 07:54 | Outpatient (CLI) | payer MEDICARE ==
[2020-12-23] MEDS ORDERED: Iopamidol-370 76% 500 ML 1 ML ONE (09:58)
== END 2020-12-23 07:55 | disposition home or self-care (01) ==
LOC: BICCT 07:54
PROVIDERS: ATTEND Nurse Practitioner Family
DX: K21.9 Gastro-esophageal reflux disease without esophagitis (principal); R14.0 Abdominal distension (gaseous); K44.9 Diaphragmatic hernia without obstruction or gangrene; E11.65 Type 2 diabetes mellitus with hyperglycemia; F41.1 Generalized anxiety disorder; K64.1 Second degree hemorrhoids; I10 Essential (primary) hypertension; L71.9 Rosacea, unspecified; I48.0 Paroxysmal atrial fibrillation; E78.5 Hyperlipidemia, unspecified; N30.21 Other chronic cystitis with hematuria; D50.9 Iron deficiency anemia, unspecified; N95.1 Menopausal and female climacteric states; K57.30 Diverticulosis of large intestine without perforation or abscess without bleeding; K57.10 Diverticulosis of small intestine without perforation or abscess without bleeding; Z90.49 Acquired absence of other specified parts of digestive tract; E04.2 Nontoxic multinodular goiter
CPT/HCPCS: 74177; 76536; 82565; Q9967

== ENCOUNTER 2021-10-15 11:20 | Outpatient (CLI) | payer MEDICARE | END 2021-10-15 11:21 | disposition home or self-care (01) | LOC: BICRAD 11:20 | PROVIDERS: ATTEND Nurse Practitioner Family | DX: Z23 Encounter for immunization (principal); E11.65 Type 2 diabetes mellitus with hyperglycemia; F41.1 Generalized anxiety disorder; K21.9 Gastro-esophageal reflux disease without esophagitis; I48.0 Paroxysmal atrial fibrillation | CPT/HCPCS: 36415; 71046; 80053; 80061; 82306; 83036; 84443; 85025 ==

== ENCOUNTER 2022-04-07 10:38 | Outpatient (CLI) | payer MEDICARE | END 2022-04-07 10:39 | disposition home or self-care (01) | LOC: BICRAD 10:38 | PROVIDERS: ATTEND Internal Medicine Rheumatology | DX: M25.561 Pain in right knee (principal) ==

== ENCOUNTER 2022-05-17 10:08 | Outpatient (CLI) | payer MEDICARE | END 2022-05-17 10:09 | disposition home or self-care (01) | LOC: BICCT 10:08 | PROVIDERS: ATTEND Nurse Practitioner Family | DX: Z12.31 Encounter for screening mammogram for malignant neoplasm of breast (principal); R55 Syncope and collapse; E11.65 Type 2 diabetes mellitus with hyperglycemia; N95.1 Menopausal and female climacteric states; I10 Essential (primary) hypertension; E78.5 Hyperlipidemia, unspecified; D64.9 Anemia, unspecified; Z80.3 Family history of malignant neoplasm of breast | CPT/HCPCS: 70450; 77063; 77067 ==

== ENCOUNTER 2022-07-08 09:53 | Outpatient (CLI) | payer OTHER ==
[2022-07-08] MEDS ORDERED: Iopamidol-370 76% 500 ML 1 ML ONE (14:54)
== END 2022-07-08 09:54 | disposition home or self-care (01) ==
LOC: BICCT 09:53
PROVIDERS: ATTEND Nurse Practitioner Family
DX: R31.29 Other microscopic hematuria (principal); F41.1 Generalized anxiety disorder; E11.65 Type 2 diabetes mellitus with hyperglycemia; K64.1 Second degree hemorrhoids; I10 Essential (primary) hypertension; L71.9 Rosacea, unspecified; K21.9 Gastro-esophageal reflux disease without esophagitis; I48.0 Paroxysmal atrial fibrillation; E78.5 Hyperlipidemia, unspecified; N30.21 Other chronic cystitis with hematuria; D50.9 Iron deficiency anemia, unspecified; K44.9 Diaphragmatic hernia without obstruction or gangrene; N95.1 Menopausal and female climacteric states; R14.0 Abdominal distension (gaseous); R55 Syncope and collapse; K57.50 Diverticulosis of both small and large intestine without perforation or abscess without bleeding; N28.1 Cyst of kidney, acquired
CPT/HCPCS: 74178; Q9967

== ENCOUNTER 2023-09-09 14:56 | Outpatient (CLI) | payer OTHER | END 2023-09-09 14:57 | disposition home or self-care (01) | LOC: BICRAD 14:56 | PROVIDERS: ATTEND Nurse Practitioner Family | DX: M54.2 Cervicalgia (principal); R51.9 Headache, unspecified; M50.321 Other cervical disc degeneration at C4-C5 level; M50.322 Other cervical disc degeneration at C5-C6 level; M50.323 Other cervical disc degeneration at C6-C7 level; M43.12 Spondylolisthesis, cervical region | CPT/HCPCS: 72050 ==

== ENCOUNTER 2023-09-20 10:26 | Outpatient (CLI) | payer OTHER | END 2023-09-20 10:27 | disposition home or self-care (01) | LOC: BICMRI 10:26 | PROVIDERS: ATTEND Nurse Practitioner Family | DX: M50.30 Other cervical disc degeneration, unspecified cervical region (principal); R51.9 Headache, unspecified; M48.02 Spinal stenosis, cervical region | CPT/HCPCS: 72141 ==

== ENCOUNTER 2025-06-12 13:53 | Outpatient (CLI) | payer OTHER ==
[2025-06-12 15:20] LABS: #Basophils Less than 0.03 10x3/uL (0.0-0.2); #Eosinophils 0.12 10x3/uL (0.0-0.7); #Monocytes 0.71 10x3/uL (0.11-0.59); #Neutrophils 4.59 10x3/uL (1.40-6.50); %Basophils 0.1 % (0.0-1.0); %Eosinophils 1.6 % (0.0-10.0); %Lymphocytes 26.0 % (21.0-51.0); %Monocytes 9.6 % (0.0-10.0); %Neutrophils 62.4 % (42.0-75.0); Hematocrit 40.0 % (36.0-47.0); Hemoglobin 12.5 g/dL (12.0-16.0); Mean Corpuscular Hemoglobin 28.3 pg (27.0-31.0); Mean Corpuscular Volume 90.5 fL (78.0-98.0); Platelet Count 177 10x3/uL (130-400); Red Blood Cell (RBC) Count 4.42 mill/uL (4.20-5.40); White Blood Cell (WBC) Count 7.36 10x3/uL (4.8-10.8)
[2025-06-12 15:44] LABS: Anion Gap 16 mmol/L (10-20); BUN (Urea Nitrogen) 11 mg/dL (9.8-20.1); Calc. Creatinine Clearance 0 mL/min (70-130); Calcium 8.9 mg/dL (7.8-10.44); Carbon Dioxide 25 mmol/L (23-31); Chloride 104 mmol/L (98-107); Glucose 197 mg/dL (83-110); Potassium 4.0 mmol/L (3.5-5.1); Sodium 141 mmol/L (136-145)
== END 2025-06-12 13:54 | disposition home or self-care (01) ==
LOC: LABBT 13:53
PROVIDERS: ATTEND Internal Medicine Cardiovascular Disease
DX: Z01.812 Encounter for preprocedural laboratory examination (principal); I48.91 Unspecified atrial fibrillation
CPT/HCPCS: 80048; 85025

== ENCOUNTER 2025-06-17 05:45 | Day surgery (SDC) | payer OTHER ==
[2025-06-12 14:20] VITALS: BMI 34.8
[2025-06-17] MEDS ORDERED: PROPOFOL 200 MG/20 ML VIAL ONE (08:20)
== END 2025-06-17 09:50 | disposition home or self-care (01) ==
LOC: SDC 05:45
PROVIDERS: ATTEND Internal Medicine Cardiovascular Disease
DX: I48.0 Paroxysmal atrial fibrillation (principal); I34.0 Nonrheumatic mitral (valve) insufficiency; I25.10 Atherosclerotic heart disease of native coronary artery without angina pectoris; I10 Essential (primary) hypertension; E11.9 Type 2 diabetes mellitus without complications; E78.2 Mixed hyperlipidemia; I87.2 Venous insufficiency (chronic) (peripheral); Z88.0 Allergy status to penicillin; Z88.5 Allergy status to narcotic agent; Z79.899 Other long term (current) drug therapy; Z79.4 Long term (current) use of insulin
CPT/HCPCS: 82962; 92960; 93312; J2704; 36416